=== PATIENT | female | born 1945 | race Caucasian/White ===

== ENCOUNTER 2022-09-02 05:04 | Day surgery (SDC) | payer OTHER ==
[2022-09-01 10:35] VITALS: BMI 27.4
[2022-09-02 08:14] VITALS: TEMP 97.3
[2022-09-02 08:39] VITALS: PULSE 74; RESP 19
[2022-09-02 08:46] VITALS: BP 140/80
== END 2022-09-02 08:49 | disposition home or self-care (01) ==
LOC: JASU-ENDO 05:04
PROVIDERS: ATTEND Internal Medicine Gastroenterology
PROC: 0DJD8ZZ Inspection of Lower Intestinal Tract, Via Natural or Artificial Opening Endoscopic (ICD-10-PCS; principal; 2022-09-02 08:00)
DX: Z12.11 Encounter for screening for malignant neoplasm of colon (principal)

== ENCOUNTER 2024-05-31 06:37 | Day surgery (SDC) | payer OTHER ==
[2024-05-25 15:36] VITALS: BMI 24.2
[2024-05-31 11:37] VITALS: TEMP 98.3
[2024-05-31 12:45] VITALS: BP 148/71; PULSE 76; RESP 15
== END 2024-05-31 11:50 | disposition home or self-care (01) ==
LOC: JASU-ENDO 06:37
PROVIDERS: ATTEND Internal Medicine Gastroenterology
PROC: 0DB78ZX Excision of Stomach, Pylorus, Via Natural or Artificial Opening Endoscopic, Diagnostic (ICD-10-PCS; 2024-05-31)
PROC: 0DB68ZX Excision of Stomach, Via Natural or Artificial Opening Endoscopic, Diagnostic (ICD-10-PCS; principal; 2024-05-31 08:00)
DX: K29.50 Unspecified chronic gastritis without bleeding (principal)
CPT/HCPCS: 88305-TC; 88342-TC